=== PATIENT | male | born 2000 | race Caucasian/White ===

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

== ENCOUNTER 2023-03-27 15:59 | Emergency (ER) | payer MEDICAID, SELFPAY ==
[2023-03-27 16:05] VITALS: BP 130/76; PULSE 69; RESP 18; TEMP 37.1; O2SAT 100
--- NOTE | 2023-03-27 18:27 | W.ED.GENAD ---
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 Otherwise keep dressing in place for the next 24-48 hours and then keep wound clean and dry. Return to the emergency department 12 days for suture removal. Medical Decision Making Patient presenting to the emergency department for chief complaint of left hand laceration. Patient was relating some wood with an X-[employer] knife and accidentally lacerated on the dorsal aspect of the left hand in between the thumb and index finger. Patient has full strength of the hand, normal nanny/household manager, no loss of sensation, two-point discrimination intact, cap refill normal. Patient has a 2 cm laceration that is just into the subcutaneous tissue but does travel fairly deep due to the position of the laceration. 2 internal sutures were used to close some of the internal depth of the wound and then 4 external sutures were placed. Patient was updated on tetanus. After discussion of diagnosis and plan of care patient has no further needs, questions, or concerns and states clear understanding to return to the emergency department for any worsening symptoms. This documentation was generated using [employer] dictation system, please disregard any oddities of phrase or misspellings. HPI General Mode of arrival: ambulatory. Date/Time Provider Initiated Documentation: 03/27/23 16:07. Limitations to Documentation: no limitations. Information obtained by: patient and RN notes reviewed. History of Present Illness 22 year old M presents to the emergency department with the chief complaint of Left hand laceration, described as moderate, and is localized to the left and upper extremity. Patient started experiencing this minute(s) (30) and it has been constant. No relieving factors improve symptom(s), No exacerbating factors reported . Patient notes no other symptoms.. Patient did receive the following treatments prior to arrival, none Related Data Home Medications Medication Instructions Recorded Confirmed inhalational spacing device ##2 12/01/15 09/25/19 (Aerochamber Mini) fluticasone propionate 110 2 puff inhalation BID ##1 08/27/18 03/27/23 mcg/actuation HFA aerosol inhaler (Flovent HFA) albuterol sulfate 90 mcg/actuation 2 puff inhalation Q4H PRN ##1 01/03/19 03/27/23 aerosol inhaler (ProAir HFA) loratadine 10 mg tablet 10 mg PO DAILY #45 tab-caps 04/10/19 03/27/23 Previous Rx's Medication Instructions Recorded fluticasone propionate 110 2 puff inhalation BID ##1 08/27/18 mcg/actuation HFA aerosol inhaler (Flovent HFA) albuterol sulfate 90 mcg/actuation 2 puff inhalation Q4H PRN ##1 01/03/19 aerosol inhaler (ProAir HFA) loratadine 10 mg tablet 10 mg PO DAILY #45 tab-caps 04/10/19 Allergies Allergy/AdvReac Type Severity Reaction Status Date / Time No Known Allergies Allergy Unverified 03/27/23 16:06 General Stated Complaint: Laceration ZULY: 4 Review of Systems Cardiovascular Cardiovascular: Reports syncope and Denies lightheadedness Musculoskeletal Musculoskeletal: Denies deformity, Denies limited range of motion, Denies muscle weakness and Denies numbness Integumentary/Breasts Skin/Breast: Reports as per HPI Neurologic Neurologic: Reports syncope, Denies numbness and Denies paresthesias PFSH All Active Problems (Updated 03/27/23 @ 18:33 by Andrew Montgomery NP) Laceration of hand (Acute) Medical History Asthma Varicocele Family History Maternal Grandfather No problems noted. Paternal Grandfather No problems noted. Maternal Grandmother No problems noted. Paternal Grandmother No problems noted. Social History Smoking/Tobacco Use Status: Current every day Tobacco Type: cigarettes Quit status: considering quitting Second Hand Exposure: Yes Smoking risk assessment performed?: Yes Alcohol Intake: current Alcohol Intake frequency: a few times a month Alcohol type: beer Drug use: Daily Substance use type: marijuana Caregiver/Support person: No Household members: family Communication Needs: None Pets and animals: No Sexually active: Yes Do you think of yourself as: straight/heterosexual Current gender identity: male Duration: 60-90 minutes/day Frequency: 1-2 times per week Rylee/Catholic: None Seatbelt use: always Helmet use: Yes Helmet use: always Drive intox or ride w/intox commercial collections driver: No Do you feel safe in your relationship?: Yes Exam Const General: cooperative, no acute distress and not ill appearing Orientation: alert, awake and oriented x3 HENMT Mouth: moist mucous membranes Resp Effort & Inspection: normal respiratory effort, able to speak in complete sentences and no respiratory distress Cardio Rate: regular rate Rhythm: regular rhythm Pulses: normal peripheral pulses Neuro General: patient alert, patient awake, patient oriented x3, moves all extremities and no focal motor deficits Sensory Exam: no sensory deficits noted Extrem General: normal exam except as noted Left upper extremity: hand Details: laceration dorsal hand dorsal aspect Details: linear, flap, actively bleeding, involving subcutaneous tissue, with motor nerve function intact and with sensation intact Course Vital Signs Vital signs: Vital Signs Temperature 37.1 C 03/27/23 16:05 Pulse 69 03/27/23 16:05 Respiratory Rate 18 03/27/23 16:05 Blood Pressure 130/76 03/27/23 16:05 Pulse Oximetry 100 03/27/23 16:05 Temperature 37.1 C 03/27/23 16:05 Pulse 69 03/27/23 16:05 Respiratory Rate 18 03/27/23 16:05 Respiratory Effort Normal, Non-Labored 03/27/23 16:58 Blood Pressure 130/76 03/27/23 16:05 Pulse Oximetry 100 03/27/23 16:05 Oxygen Delivery Method Room Air 03/27/23 16:05 Oxygen Flow Rate 0 03/27/23 16:05 Pain Level 4 03/27/23 16:05 Procedures Laceration Laceration 1: Site: hand Side (If applicable): left Size (cm): 2 Description: linear and flap Depth: simple, single layer Local Anesthetic: Lidocaine 1% and with Epi Amount of anesthesia used (mL): 3 Pre-repair: wound explored, irrigated extensively and deep structures intact Skin layer closed with: other (Prolene) Size (cm): 3-0 Number of sutures: 4 Technique: simple, interrupted Subcutaneous layer closed with: vicryl Size: 5-0 Number of sutures: 2 Technique: simple, interrupted
[2023-03-27 18:42] VITALS: BP 125/69; PULSE 84; RESP 18; O2SAT 98
== END 2023-03-27 18:42 | disposition home or self-care (01) ==
PROVIDERS: Emergency Provider Nurse Practitioner Family
DX: S61.412A Laceration without foreign body of left hand, initial encounter (principal); F17.210 Nicotine dependence, cigarettes, uncomplicated; W26.0XXA Contact with knife, initial encounter; Y93.89 Activity, other specified; Y92.89 Other specified places as the place of occurrence of the external cause; Y99.9 Unspecified external cause status; Z23 Encounter for immunization
CPT/HCPCS: 12041; 90472; 99283

== ENCOUNTER 2023-04-11 14:40 | Emergency (ER) | payer MEDICAID, SELFPAY ==
[2023-04-11 14:42] VITALS: BP 130/80; PULSE 75; RESP 18; TEMP 36.8; O2SAT 98
--- NOTE | 2023-04-11 14:48 | ED.GENADUL_ITS ---
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 Keep clean and dry as much as possible. Allow to air dry at least 2 hours a day. Follow up with primary care provider in 3-5 days. Return to ED sooner if any worsening or concerns. Increase oral fluids. Discharge Data Discharge Date/Time-TO BE ENTERED AT DEPARTURE: 04/11/23 15:38 Medical Decision Making Patient had 4 simple interrupted sutures to his left hand approximately 2 weeks ago. He reports that he was out of town and was supposed to get them out earlier. He denies any problems no signs of infection noted no drainage. Wound is well approximated. After sutures were removed by staff command and control officer it was partially open, however it appears to be healing well on the inside 3-4 Steri-Strips were placed by staff command and control officer. Discussed home care and given instructions patient verbalized understanding. This text was generated using [employer] system, please disregard any oddities of phrase or misspellings. HPI General Mode of arrival: ambulatory . Date/Time Provider Initiated Documentation: 04/11/23 14:46 . Limitations to Documentation: no limitations . Information obtained by: patient, RN notes reviewed and old records reviewed . HPI Narrative: Patient had 4 simple interrupted sutures to his left hand approximately 2 weeks ago. He reports that he was out of town and was supposed to get them out earlier. He denies any problems no signs of infection noted no drainage. Wound is well approximated. Related Data Home Medications Medication Instructions Recorded Confirmed inhalational spacing device ##2 12/01/15 04/11/23 (Aerochamber Mini) fluticasone propionate 110 2 puff inhalation BID ##1 08/27/18 04/11/23 mcg/actuation HFA aerosol inhaler (Flovent HFA) albuterol sulfate 90 mcg/actuation 2 puff inhalation Q4H PRN ##1 01/03/19 04/11/23 aerosol inhaler (ProAir HFA) loratadine 10 mg tablet 10 mg PO DAILY #45 tab-caps 04/10/19 04/11/23 Previous Rx's Medication Instructions Recorded fluticasone propionate 110 2 puff inhalation BID ##1 08/27/18 mcg/actuation HFA aerosol inhaler (Flovent HFA) albuterol sulfate 90 mcg/actuation 2 puff inhalation Q4H PRN ##1 01/03/19 aerosol inhaler (ProAir HFA) loratadine 10 mg tablet 10 mg PO DAILY #45 tab-caps 04/10/19 Allergies Allergy/AdvReac Type Severity Reaction Status Date / Time No Known Allergies Allergy Unverified 04/11/23 14:44 General Stated Complaint: SutureRem ZULY: 4 Review of Systems Integumentary/Breasts Skin/Breast: Denies erythema, Denies rash, Denies skin pain, Denies skin swelling and Reports other (Partially approximated laceration noted to his left hand. ) PFSH All Active Problems (Updated 04/11/23 @ 14:53 by Genoveva Ahuja NP) Laceration of hand (Acute) Encounter for removal of sutures (Acute) Medical History Asthma Varicocele Family History Maternal Grandfather No problems noted. Paternal Grandfather No problems noted. Maternal Grandmother No problems noted. Paternal Grandmother No problems noted. Social History Smoking/Tobacco Use Status: Current every day Tobacco Type: cigarettes Quit status: considering quitting Second Hand Exposure: Yes Smoking risk assessment performed?: Yes Alcohol Intake: current Alcohol Intake frequency: a few times a month Alcohol type: beer Drug use: Daily Substance use type: marijuana Caregiver/Support person: No Household members: family Housing: house Communication Needs: None Pets and animals: No Sexually active: Yes Do you think of yourself as: straight/heterosexual Current gender identity: male Duration: 60-90 minutes/day Frequency: 1-2 times per week Rylee/Latter Day: None Seatbelt use: always Helmet use: Yes Helmet use: always Drive intox or ride w/intox hearse driver: No Do you feel safe at home: Yes Do you feel safe in your relationship?: Yes Exam Extrem Left upper extremity: hand Hand/finger images: 1. Partially approximated laceration, 4 simple interrupted sutures in place no surrounding erythema redness swelling drainage or signs of infection. Course Vital Signs Vital signs: Vital Signs Temperature 36.8 C 04/11/23 14:42 Pulse 75 04/11/23 14:42 Respiratory Rate 18 04/11/23 14:42 Blood Pressure 130/80 04/11/23 14:42 Pulse Oximetry 98 04/11/23 14:42 Temperature 36.8 C 04/11/23 14:42 Temperature Source Skin 04/11/23 14:42 Pulse 75 04/11/23 14:42 Respiratory Rate 18 04/11/23 14:42 Respiratory Effort Normal, Non-Labored 04/11/23 14:45 Blood Pressure 130/80 04/11/23 14:42 Blood Pressure Position Sitting 04/11/23 14:42 Pulse Oximetry 98 04/11/23 14:42 Oxygen Delivery Method Room Air 04/11/23 14:42 Oxygen Flow Rate 0 04/11/23 14:42 Pain Level 0 04/11/23 14:42 PAWSS Have you Been Recently Intoxicated or Drunk Within the Last 30 days?: No Have you Ever Experienced Previous Episodes of Alcohol Withdrawal?: No Have you ever Experienced Withdrawal Seizures?: No Have you ever Experienced Delirium Tremens(DT)s?: No Have you ever undergone Alcohol Rehabilitation Treatment (i.e, inpt ot outpatient treatment programs)?: No Have you ever Experienced Blackouts?: No Have you ever Combined Alcohol with other Downers within the last 90 days?: No Have you ever Combined Alcohol with any other Substance of Abuse during the last 90 days?: No Positive Blood Alcohol level on Presentation? [PCS.BAL]: No Evidence of Increased Autonomic Activity (i.e. HR>120, tremor, sweating, agitation, nausea)?: No Result: 0
[2023-04-11 14:59] VITALS: BP 130/80; PULSE 75; RESP 18; TEMP 36.8; O2SAT 98
== END 2023-04-11 15:38 | disposition home or self-care (01) ==
PROVIDERS: Emergency Provider Registered Nurse Emergency
DX: Z53.21 Procedure and treatment not carried out due to patient leaving prior to being seen by health care provider (principal)

== ENCOUNTER 2024-06-04 16:21 | Emergency (ER) | payer MEDICAID, SELFPAY ==
[2024-06-04 16:24] VITALS: BP 142/88; PULSE 72; RESP 12; TEMP 36.7; O2SAT 98
--- NOTE | 2024-06-04 16:57 | W.ED.GENAD ---
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 If you have spreading redness from the finger or severe pain or yellow-white discharge from the wound return to the emergency department for reevaluation HPI General Mode of arrival: ambulatory. Date/Time Provider Initiated Documentation: 06/04/24 16:26. Limitations to Documentation: no limitations. Information obtained by: patient. History of Present Illness 23 year old M presents to the emergency department with the chief complaint of right index finger fish hook stuck, described as mild, Quality is described as aching, Patient reports no radiation. and it has been constant. No relieving factors improve symptom(s), No exacerbating factors reported . Patient did receive the following treatments prior to arrival, none Related Data Home Medications ?Medication ?Instructions ?Recorded ?Confirmed inhalational spacing device ##2 12/01/15 06/04/24 (Aerochamber Mini) fluticasone propionate 110 2 puff inhalation BID ##1 08/27/18 06/04/24 mcg/actuation HFA aerosol inhaler (Flovent HFA) albuterol sulfate 90 mcg/actuation 2 puff inhalation Q4H PRN ##1 01/03/19 06/04/24 aerosol inhaler (ProAir HFA) loratadine 10 mg tablet 10 mg PO DAILY #45 tab-caps 04/10/19 06/04/24 ciprofloxacin HCl 500 mg tablet 500 mg PO BID #14 tabs 06/04/24 Previous Rx's ?Medication ?Instructions ?Recorded fluticasone propionate 110 2 puff inhalation BID ##1 08/27/18 mcg/actuation HFA aerosol inhaler (Flovent HFA) albuterol sulfate 90 mcg/actuation 2 puff inhalation Q4H PRN ##1 01/03/19 aerosol inhaler (ProAir HFA) loratadine 10 mg tablet 10 mg PO DAILY #45 tab-caps 04/10/19 ciprofloxacin HCl 500 mg tablet 500 mg PO BID #14 tabs 06/04/24 Allergies Allergy/AdvReac Type Severity Reaction Status Date / Time No Known Allergies Allergy Verified 06/04/24 16:25 General Stated Complaint: Orthopedic ZULY: 4 Review of Systems All systems reviewed & are unremarkable except as noted in HPI and below Constitutional Constitutional: Denies chills, Denies fever(s) and Denies weakness Respiratory Respiratory: Denies cough Gastrointestinal Gastrointestinal: Denies nausea and Denies vomiting Integumentary/Breasts Skin/Breast: Denies rash Neurologic Neurologic: Denies weakness Exam Const General: no acute distress Orientation: alert [facility] Head: normal to inspection Ears: external ears normal General nose exam: external nose normal Mouth: moist mucous membranes Eyes General: appearance normal, both eyes and all related structures Neck Neck: normal visual inspection Resp Effort & Inspection: normal respiratory effort and able to speak in complete sentences Cardio Rate: regular rate Skin General skin exam: no rashes or lesions noted Neuro General: patient alert and patient oriented x3 Extrem General: normal to inspection, full ROM and capillary refill normal Psych Mental Status: mental status grossly normal Course Vital Signs Vital signs: Vital Signs Temperature 36.7 C 06/04/24 16:24 Pulse 72 06/04/24 16:24 Respiratory Rate 12 06/04/24 16:24 Blood Pressure 142/88 H 06/04/24 16:24 Pulse Oximetry 98 06/04/24 16:24 Temperature 36.7 C 06/04/24 16:24 Temperature Source Skin 06/04/24 16:24 Pulse 72 06/04/24 16:24 Respiratory Rate 12 06/04/24 16:24 Respiratory Effort Normal, Non-Labored 06/04/24 16:26 Blood Pressure 142/88 H 06/04/24 16:24 Blood Pressure Position Sitting 06/04/24 16:24 Pulse Oximetry 98 06/04/24 16:24 Oxygen Delivery Method Room Air 06/04/24 16:24 Oxygen Flow Rate 0 06/04/24 16:24 Pain Level 1 06/04/24 16:24 Medical Decision Making 23-year-old male who denies any significant chronic medical problems comes in with a fishhook stuck in his right index finger. He denies any other injuries. He has a fishhook embedded in the right ulnar surface of his mid right index finger. Intact sensation and cap refill. Seems superficial, he does state there is a sara on it so he cannot pull back on it. After cleaning with an alcohol swab I instilled 4 cc of 1% lidocaine into the area. I then advanced the hook through the skin and using a ring cutter cut the tip of the hook, and was then able to remove the hook. Patient tolerated this well. I will have him place topical Neosporin on it and also cover for freshwater organisms with ciprofloxacin. He is stable for discharge, return precautions given Quality:SDOH Health Related Social Needs: No Data to Display PFSH All Active Problems (Updated 06/04/24 @ 17:01 by Gautam Harrison MD) [place] injury to finger (Acute) Medical History Asthma Varicocele Family History Maternal Grandfather No problems noted. Paternal Grandfather No problems noted. Maternal Grandmother No problems noted. Paternal Grandmother No problems noted. Social History Smoking/Tobacco Use Status: Current every day Tobacco Type: cigarettes Quit status: considering quitting Second Hand Exposure: Yes Smoking risk assessment performed?: Yes Alcohol Intake: current Alcohol Intake frequency: a few times a month Alcohol type: beer Drug use: Daily Substance use type: marijuana Caregiver/Support person: No Household members: family Housing: house Communication Needs: None Pets and animals: No Sexually active: Yes Do you think of yourself as: straight/heterosexual Current gender identity: male Duration: 60-90 minutes/day Frequency: 1-2 times per week Rlyee/Mormon: None Seatbelt use: always Helmet use: Yes Helmet use: always Drive intox or ride w/intox [employer]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 Do you feel safe at home: Yes Do you feel safe in your relationship?: Yes PAWSS Have you Been Recently Intoxicated or Drunk Within the Last 30 days?: No Have you Ever Experienced Previous Episodes of Alcohol Withdrawal?: No Have you ever Experienced Withdrawal Seizures?: No Have you ever Experienced Delirium Tremens(DT)s?: No Have you ever undergone Alcohol Rehabilitation Treatment (i.e, inpt ot outpatient treatment programs)?: No Have you ever Experienced Blackouts?: No Have you ever Combined Alcohol with other Downers within the last 90 days?: No Have you ever Combined Alcohol with any other Substance of Abuse during the last 90 days?: No Result: 0
== END 2024-06-04 17:27 | disposition home or self-care (01) ==
LOC: ER 17:15
PROVIDERS: Emergency Provider Emergency Medicine
DX: S60.450A Superficial foreign body of right index finger, initial encounter (principal); W45.8XXA Other foreign body or object entering through skin, initial encounter; Y93.19 Activity, other involving water and watercraft; Y92.838 Other recreation area as the place of occurrence of the external cause
CPT/HCPCS: 99283; J2003

== ENCOUNTER 2024-07-31 11:06 | Emergency (ER) | payer MEDICAID, SELFPAY ==
[2024-07-31 11:16] VITALS: BP 121/73; PULSE 63; RESP 15; TEMP 36.9; O2SAT 98
--- NOTE | 2024-07-31 11:56 | DI.RAD_ITS ---
Exam(s) XR FOOT RT COMPLETE EXAM: XR FOOT RT COMPLETE CLINICAL HISTORY: right lateral foot pain, ecchymosis. TECHNIQUE: 2D digital imaging was performed. Three views. COMPARISON: CR LEFT FOOT COMPLETE from 04/28/2014 FINDINGS: BONES: No acute fracture is present. No bony destructive lesion is seen. JOINTS: No dislocation present. SOFT TISSUE: Normal. IMPRESSION: Unremarkable radiographs of the right foot. DATA REPOSITORY: RADIATION DOSE DELIVERED:
[2024-07-31 12:50] VITALS: BP 121/73; PULSE 63; RESP 15; TEMP 36.9; O2SAT 98
--- NOTE | 2024-08-01 09:31 | W.ED.GENAD ---
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 albuterol sulfate [ProAir HFA] 90 mcg/actuation HFA aerosol inhaler 2 puff Inhalation Q4H PRN Qty: 1 2RF loratadine 10 mg tablet 10 mg PO DAILY Qty: 45 2RF Discharge Instructions Instructions: Muscle Strain (DC) Additional Instructions: Use your boot for the next week and try to elevate your foot and rest is much as possible Take Tylenol ibuprofen as needed for pain Reassessment in 1 week with persistent discomfort return earlier should you have new or worsening complaints Discharge Data Discharge Date/Time-TO BE ENTERED AT DEPARTURE: 07/31/24 12:52 HPI General Date/Time Provider Initiated Documentation: 07/31/24 11:32. HPI Narrative: This 24-year-old male presents with report of right foot pain after twisting his foot playing soccer 1 day prior to arrival. Denies any additional injuries. Denies any ankle or knee pain. Otherwise reportedly healthy. Pain with weightbearing. Related Data Home Medications ?Medication ?Instructions ?Recorded ?Confirmed inhalational spacing device ##2 12/01/15 07/31/24 (Aerochamber Mini) fluticasone propionate 110 2 puff inhalation BID ##1 08/27/18 07/31/24 mcg/actuation HFA aerosol inhaler (Flovent HFA) albuterol sulfate 90 mcg/actuation 2 puff inhalation Q4H PRN ##1 01/03/19 07/31/24 aerosol inhaler (ProAir HFA) loratadine 10 mg tablet 10 mg PO DAILY #45 tab-caps 04/10/19 07/31/24 Previous Rx's ?Medication ?Instructions ?Recorded fluticasone propionate 110 2 puff inhalation BID ##1 08/27/18 mcg/actuation HFA aerosol inhaler (Flovent HFA) albuterol sulfate 90 mcg/actuation 2 puff inhalation Q4H PRN ##1 01/03/19 aerosol inhaler (ProAir HFA) loratadine 10 mg tablet 10 mg PO DAILY #45 tab-caps 04/10/19 Allergies Allergy/AdvReac Type Severity Reaction Status Date / Time No Known Allergies Allergy Verified 07/31/24 11:20 General Stated Complaint: Orthopedic ZULY: 4 Exam Narrative Exam Narrative: Alert and oriented 24-year-old male in no acute distress, right lateral foot pain with ecchymosis, neurovascularly intact, no tenderness to ankle or knee. Course Vital Signs Vital signs: Vital Signs Temperature 36.9 C 07/31/24 11:16 Pulse 63 07/31/24 11:16 Respiratory Rate 15 07/31/24 11:16 Blood Pressure 121/73 07/31/24 11:16 Pulse Oximetry 98 07/31/24 11:16 Temperature 36.9 C 07/31/24 12:50 Pulse 63 07/31/24 12:50 Respiratory Rate 15 07/31/24 12:50 Respiratory Effort Normal, Non-Labored 07/31/24 12:41 Blood Pressure 121/73 07/31/24 12:50 Blood Pressure Position Sitting 07/31/24 11:16 Pulse Oximetry 98 07/31/24 12:50 Oxygen Delivery Method Room Air 07/31/24 11:16 Oxygen Flow Rate 0 07/31/24 11:16 Pain Level 3 07/31/24 12:41 Medical Decision Making This 24-year-old male presents with right foot pain. X-ray was ordered for further evaluation, no evidence of fracture per radiology interpretation my review. Placed in a boot for comfort. Return precautions reviewed and patient expressed understanding, repeat assessment in 1 week with persistent pain recommended Quality:SDOH Health Related Social Needs: No Data to Display PFSH All Active Problems (Updated 07/31/24 @ 12:11 by GALDINO Domingo) Strain of foot (Acute) Medical History Asthma Varicocele Family History Maternal Grandfather No problems noted. Paternal Grandfather No problems noted. Maternal Grandmother No problems noted. Paternal Grandmother No problems noted. Social History Smoking/Tobacco Use Status: Current every day Tobacco Type: cigarettes Quit status: considering quitting Second Hand Exposure: Yes Smoking risk assessment performed?: Yes Alcohol Intake: current Alcohol Intake frequency: a few times a month Alcohol type: beer Drug use: Daily Substance use type: marijuana Caregiver/Support person: No Household members: family Housing: house Communication Needs: None Pets and animals: No Sexually active: Yes Do you think of yourself as: straight/heterosexual Current gender identity: male Duration: 60-90 minutes/day Frequency: 1-2 times per week Rylee/Orthodoxy: None Seatbelt use: always Helmet use: Yes Helmet use: always Drive intox or ride w/intox professional driver: No Do you feel safe at home: Yes Do you feel safe in your relationship?: Yes
== END 2024-07-31 12:52 | disposition home or self-care (01) ==
PROVIDERS: Emergency Provider Physician Assistant
DX: S96.911A Strain of unspecified muscle and tendon at ankle and foot level, right foot, initial encounter (principal); X50.1XXA Overexertion from prolonged static or awkward postures, initial encounter; F17.210 Nicotine dependence, cigarettes, uncomplicated; Y93.66 Activity, soccer; Y92.89 Other specified places as the place of occurrence of the external cause
CPT/HCPCS: 99283; 73630